=== PATIENT | female | born 1975 | race Two or more races ===

== ENCOUNTER 2020-03-04 09:59 | Day surgery (SDC) | payer OTHER ==
[2020-02-29 12:02] LABS: HEMATOCRIT 36.1 % (36.0-47.0); HEMOGLOBIN 12.5 g/dL (12.0-15.5); MEAN CORPUSCULAR HEMOGLOBIN 29.9 pg (27.0-33.4); MEAN CORPUSCULAR HGB CONC 34.6 g/dL (32.0-36.0); MEAN CORPUSCULAR VOLUME 86 fl (80-97); PLATELET COUNT 202 10^3/uL (150-450); RED BLOOD COUNT 4.17 10^6/uL (3.72-5.28); WHITE BLOOD COUNT 4.9 10^3/uL (4.0-10.5)
[2020-02-29 12:22] LABS: APPEARANCE,URINE SLIGHTLY-CLOUDY; BILIRUBIN,URINE NEGATIVE (NEGATIVE); COLOR,URINE YELLOW; GLUCOSE, URINE NEGATIVE (NEGATIVE); KETONES,URINE NEGATIVE (NEGATIVE); LEUKOCYTE ESTERASE,URINE NEGATIVE (NEGATIVE); NITRITE,URINE NEGATIVE (NEGATIVE); PROTEIN,URINE NEGATIVE (NEGATIVE); URINE SPECIFIC GRAVITY 1.024
[~2020-03-04 09:59] MED LIST: DOXYCYCLINE HYCLATE 100 MG in DEXTROSE 5%-WATER 250 ML IV PRN
[2020-03-04] MEDS ORDERED: FENTANYL CITRATE INJ/PF 100 MCG/2 ML AMPUL ONE ×2 (10:05→12:53)
[2020-03-04] MEDS ORDERED: PROPOFOL INJ 200 MG/20 ML VIAL IV ONE (10:05)
[2020-03-04] MEDS ORDERED: MIDAZOLAM 2 MG/2 ML INJ ONE (10:05)
[2020-03-04] MEDS ORDERED: ONDANSETRON HCL INJ/PF 4 MG/2 ML SDV ONE (10:05)
[2020-03-04] MEDS ORDERED: LIDOCAINE 1%/EPINEPHRINE INJ 20 ML VIAL ONE (11:55)
[2020-03-04] MEDS ORDERED: MEPERIDINE HCL/PF INJ 25 MG/1 ML DISP.SYRIN IV PRN (12:31)
[2020-03-04] MEDS ORDERED: OXYCODONE-ACETAMINOPHEN 5-325 MG TABLET PO PRN ×4 (12:31→13:16)
[2020-03-04] MEDS ORDERED: PROMETHAZINE HCL INJ 25 MG/1 ML VIAL IV PRN ×2 (12:31)
[2020-03-04] MEDS ORDERED: DIPHENHYDRAMINE HCL 50 MG/ML VIAL IV PRN (12:31)
[2020-03-04] MEDS ORDERED: FENTANYL CITRATE INJ/PF 100 MCG/2 ML AMPUL IV PRN ×3 (12:31)
[2020-03-04] MEDS ORDERED: MORPHINE SULFATE 10 MG/ML INJ IV PRN (12:31)
[2020-03-04] MEDS ORDERED: HYDROMORPHONE HCL INJ/PF 2 MG/ML AMPULE IV PRN (13:15)
[2020-03-04] MEDS ORDERED: RINGERS SOLUTION,LACTATED 1,000 ML IV PRN (13:15)
[2020-03-04] MEDS ORDERED: IBUPROFEN 800 MG TABLET PO PRN (13:16)
[2020-03-04] MEDS ORDERED: OXYCODONE-ACETAMINOPHEN 5-325 MG TABLET ONE (13:39)
[2020-03-04 16:45] VITALS: BP 134/82
--- NOTE | 2020-03-11 16:38 | Operative Report ---
Operative Report DATE OF SURGERY: 03/04/20 PREOPERATIVE DIAGNOSIS: DUB POSTOPERATIVE DIAGNOSIS: DUB OPERATION: EUA, Paracervical Block, Hysteroscopy, D&C, Novasure SURGEON: ARUN SHARPE ANESTHESIA: GA TISSUE REMOVED OR ALTERED: EMC COMPLICATIONS: None ESTIMATED BLOOD LOSS: 5ml INTRAOPERATIVE FINDINGS: proliferative appearing endometrium, no fibroids, no polyps. Cavity length 6cm, Cavity width 4.5cm, Power 149+, Ablation time 1min 38sec PROCEDURE: Anesthesia: [[place] CRNA, Matt HALL] IVF: [500ml] UOP: void prior to OR Indications: [44yo with BTL for contraception presents with normal EMBx and pap smear but severe anemia and heavy menorrhagia since in the [facility]. She h as had to be treated with IV iron therapy in the past for anemia. The risks, benefits, alternatives were reviewed and she desires to proceed with planned procedure for Hysteroscopy with [facility].] Procedure: The patient was taken to the Operating Room where general anesthesia was obtained without difficulty. She was prepped and draped in the normal sterile fashion in the dorsal lithotomy position. Exam under anesthesia was performed and noted above. A speculum was placed in the vagina. The anterior cervix was grasped with a single-tooth tenaculum and the uterus sounded to 8 cm after paracervical block was performed with 8 mL of 1% lidocaine with epinephrine. Sequential dilators were then used to dilate the cervix to accommodate the Myosure hysteroscope. The hysteroscope was then gently advanced into the uterine cavity in the usual fashion with visualization of the endometrium as noted above. The hysteroscope was then removed. At this time gentle curettage was performed until a gritty texture was noted. Novasure endometrial ablation was then performed per device instructions. All instruments were removed from the patient's cervix and vagina. Silver nitrate was applied to the tenaculum site for hemostasis. Sponge lap needle and instrument counts are correct 2. Doxycycline 100mg IV preop given. The patient tolerated the procedure well and was taken to the recovery area awake and in stable condition.
== END 2020-03-04 14:40 | disposition home or self-care (01) ==
LOC: OROUT 09:59
PROVIDERS: ATTEND Student in an Organized Health Care Education/Training Program
DX: N93.8 Other specified abnormal uterine and vaginal bleeding (principal); Z20.828 Contact with and (suspected) exposure to other viral communicable diseases; I10 Essential (primary) hypertension; F32.9 Major depressive disorder, single episode, unspecified; Z98.51 Tubal ligation status; Z87.891 Personal history of nicotine dependence; Z79.899 Other long term (current) drug therapy
CPT/HCPCS: 36415 ×2; 84132 ×2; 84703; 85027; 87635; 81001; 88305 ×2; 00952; 58563; J2250; J3490 ×2; J3010; J2405; J7060; J2704; C9803; 952